=== PATIENT | female | born 1970 ===

== ENCOUNTER → 2017-12-18 | Outpatient (CLI) | payer OTHER ==
[~2017-12-18] VITALS: Ht 152.4 cm; Wt 80.7 kg
[~2017-12-18] MED LIST: AMOX1TAB5 PO; FLONASE16 GM NS; GILTUSS TR TAB1 EACH PO; SYNTHROID88 MCG; SYNTHROID88 MCG PO; TESSALON PERLE100 MG PO
== END | disposition home or self-care (01) ==
LOC: PPHC 18:07
DX: Z76.0 Encounter for issue of repeat prescription (principal)